=== PATIENT | male | born 1995 | race Caucasian/White ===

== ENCOUNTER 2022-12-07 08:04 | Inpatient (IN) | payer BC ==
[2022-12-07] MEDS ORDERED: Sodium Chloride 0.9% 10 ML Syringe FLUSH PRN (08:31)
[2022-12-07] MEDS ORDERED: Thiamine 200 MG/2 ML MDV IVPUSH ONE (08:32)
[2022-12-07] MEDS ORDERED: MVI IV ONE ×4 (08:32→09:30)
[2022-12-07] MEDS ORDERED: VITAMIN K IV ONE ×4 (08:32→09:30)
[2022-12-07] MEDS ORDERED: NACL IV ONE ×4 (08:32→09:30)
[2022-12-07] MEDS ORDERED: DEXTROSE IV ONE ×4 (08:32→09:30)
[2022-12-07 08:42] LABS: BASOPHILS ABSOLUTE AUTO 0.1 K/mm3 (0.0-0.2); EOSINOPHILS PERCENT AUTO 0.2 % (0.0-6.0); HEMATOCRIT 37.8 % (42.0-52.0); HEMOGLOBIN 13.3 gm/dl (14.0-18.0); IMMATURE GRAN ABSOLUTE AUTO 0.05 K/mm3 (0.00-0.05); LYMPHOCYTES ABSOLUTE AUTO 0.7 K/mm3 (1.0-4.8); LYMPHOCYTES PERCENT AUTO 13.2 % (24.0-44.0); MEAN CORPUSCULAR HEMOGLOBIN 32.4 pg (28.0-32.0); MEAN CORPUSCULAR HGB CONC 35.2 g/dl (32.0-36.0); MEAN CORPUSCULAR VOLUME 92.2 fl (83.0-99.0); MEAN PLATELET VOLUME 10.8 fl (9.4-12.4); MONOCYTES ABSOLUTE AUTO 1.3 K/mm3 (0.0-0.8); MONOCYTES PERCENT AUTO 24.8 % (0.0-8.0); NEUTROPHILS ABSOLUTE AUTO 3.1 K/mm3 (1.8-7.7); NEUTROPHILS PERCENT AUTO 59.8 % (41.0-71.0); PLATELET COUNT,PLT 275 K/mm3 (150-400); WHITE BLOOD CELL COUNT,WBC 5.16 K/mm3 (3.9-11.3)
[2022-12-07] MEDS ORDERED: Sodium Chloride 0.9% 1,000 ML IV SCH (08:45)
[2022-12-07 08:53] LABS: A/G RATIO 0.7 (1-2); ALBUMIN 3.3 g/dl (3.4-5.0); ANION GAP 11.9 (5-15); BILIRUBIN TOTAL 1.2 mg/dL (0.2-1.0); BUN/CREATININE RATIO 8.6 (14-18); CALCIUM 9.1 mg/dL (8.5-10.1); CREATININE 0.7 mg/dL (0.7-1.3); EST CRCL DRUG DOSING (CG) 213.8 mL/min; MAGNESIUM 1.9 mg/dL (1.8-2.4); POTASSIUM,K 2.9 mEq/L (3.5-5.1); PROTEIN TOTAL,TP 7.8 g/dl (6.4-8.2)
[2022-12-07] MEDS: Folic Acid 50 MG/10 ML MDV IV SCH (09:00)
[2022-12-07 09:20] LABS: SLIDE REVIEW ABNORMAL SMEAR
[2022-12-07] MEDS: Potassium Chloride 10 MEQ in Premix Bag 1 BAG IV SCH ×4 (09:32→14:12)
[2022-12-07] MEDS ORDERED: LORazepam 2 MG/ML SDV IVPUSH ONE ×2 (10:55→12:28)
[2022-12-07 11:52] LABS: BARBITURATE SCREEN,URINE NEGATIVE (CUTOFF=200); BENZODIAZEPINES SCREEN,URINE PRESUMPTIVE POSITIVE (CUTOFF=150); BUPRENORPHINE SCREEN,URINE NEGATIVE (CUTOFF=10); METHADONE SCREEN, URINE NEGATIVE (CUT0FF=200); METHAMPHETAMINES SCREEN, URINE NEGATIVE (CUTOFF=500); OXYCODONE SCREEN,URINE NEGATIVE (CUT0FF=100); PROPOXYPHENE SCREEN,URINE NEGATIVE (CUTOFF=300); THC SCREEN,URINE 20 NG/ML NEGATIVE (CUTOFF=50)
[2022-12-07 11:54] LABS: AMPHETAMINES SCREEN, URINE NEGATIVE (CUTOFF=500)
[2022-12-07] MEDS ORDERED: Thiamine 200 MG in Sodium Chloride 0.9% 100 ML IV ONE (12:28)
[2022-12-07] MEDS ORDERED: Thiamine 200 MG/2 ML MDV IV ONE (13:00)
[2022-12-07] MEDS ORDERED: Docusate Sodium 100 MG Cap PO PRN (13:29)
[2022-12-07] MEDS ORDERED: Ondansetron 4 MG/2 ML SDV IV PRN (13:29)
[2022-12-07] MEDS ORDERED: Acetaminophen 325 MG Tab PO PRN (13:29)
[2022-12-07] MEDS ORDERED: oxyCODONE 5 MG Tab PO PRN (13:29)
[2022-12-07] MEDS: Pantoprazole 40 MG Vial IVPUSH SCH (14:18)
[2022-12-07] MEDS: LORazepam 2 MG/ML SDV IVPUSH PRN ×6 (14:18→23:42)
[2022-12-07] MEDS: D5 1/2 NS w/ 20 mEq/L KCl 1,000 ML IV SCH (16:38)
[2022-12-08] MEDS: LORazepam 2 MG/ML SDV IVPUSH PRN ×9 (01:30→23:32)
[2022-12-08] MEDS: D5 1/2 NS w/ 20 mEq/L KCl 1,000 ML IV SCH ×3 (03:19→20:11)
[2022-12-08 05:26] LABS: BASOPHILS ABSOLUTE AUTO 0.1 K/mm3 (0.0-0.2); BASOPHILS PERCENT AUTO 0.9 % (0.0-1.0); EOSINOPHILS PERCENT AUTO 0.3 % (0.0-6.0); HEMATOCRIT 34.2 % (42.0-52.0); HEMOGLOBIN 12.2 gm/dl (14.0-18.0); IMMATURE GRAN ABSOLUTE AUTO 0.06 K/mm3 (0.00-0.05); IMMATURE GRAN PERCENT AUTO 0.9 % (0.0-0.4); LYMPHOCYTES ABSOLUTE AUTO 0.8 K/mm3 (1.0-4.8); MEAN CORPUSCULAR HEMOGLOBIN 32.6 pg (28.0-32.0); MEAN CORPUSCULAR HGB CONC 35.7 g/dl (32.0-36.0); MEAN CORPUSCULAR VOLUME 91.4 fl (83.0-99.0); MONOCYTES ABSOLUTE AUTO 1.2 K/mm3 (0.0-0.8); MONOCYTES PERCENT AUTO 18.8 % (0.0-8.0); NEUTROPHILS ABSOLUTE AUTO 4.4 K/mm3 (1.8-7.7); NEUTROPHILS PERCENT AUTO 67.1 % (41.0-71.0); PLATELET COUNT,PLT 293 K/mm3 (150-400); RED BLOOD CELL COUNT 3.74 M/mm3 (4.52-5.90); WHITE BLOOD CELL COUNT,WBC 6.61 K/mm3 (3.9-11.3)
[2022-12-08 05:40] LABS: A/G RATIO 0.7 (1-2); ALBUMIN 2.9 g/dl (3.4-5.0); ANION GAP 11.3 (5-15); BUN/CREATININE RATIO 6.7 (14-18); CALCIUM 8.3 mg/dL (8.5-10.1); CREATININE 0.6 mg/dL (0.7-1.3); EST CRCL DRUG DOSING (CG) 249.43 mL/min; MAGNESIUM 1.8 mg/dL (1.8-2.4); PHOSPHORUS 2.8 mg/dL (2.6-4.7); POTASSIUM,K 3.3 mEq/L (3.5-5.1); PROTEIN TOTAL,TP 6.8 g/dl (6.4-8.2)
[2022-12-08 06:31] LABS: SLIDE REVIEW NORMAL SMEAR
[2022-12-08] MEDS ORDERED: Sodium Chloride 0.9% 1,000 ML IV ONE (07:59)
[2022-12-08] MEDS: Thiamine 200 MG/2 ML MDV IVPUSH SCH (08:11)
[2022-12-08] MEDS: Folic Acid 50 MG/10 ML MDV IV SCH (08:11)
[2022-12-08] MEDS: Pantoprazole 40 MG Vial IVPUSH SCH (08:11)
[2022-12-08] MEDS: Potassium Chloride 10 MEQ in Premix Bag 1 BAG IV SCH ×4 (08:12→11:10)
[2022-12-08] MEDS ORDERED: Thiamine 200 MG in Sodium Chloride 0.9% 100 ML IV SCH (09:00)
[2022-12-08] MEDS: HYDROmorphone 0.5 MG/0.5 ML Syringe IVPUSH PRN ×3 (11:51→23:33)
[2022-12-08] MEDS ORDERED: hydrALAZINE 20 MG/ML SDV IVPUSH ONE (22:20)
[2022-12-09] MEDS: HYDROmorphone 1 MG/ML Syringe IVPUSH PRN ×3 (00:45→22:35)
[2022-12-09] MEDS ORDERED: Furosemide 40 MG/4 ML VIAL IVPUSH ONE (01:47)
[2022-12-09] MEDS ORDERED: Furosemide 40 MG/4 ML VIAL ONE (01:57)
[2022-12-09 02:05] LABS: BASE EXCESS ARTERIAL 1.3 (-2-2.0); BICARBONATE,ARTERIAL 28.8 meq/L (22.0-26.0); O2 SATURATION ARTERIAL 89.3 % (96.0-97.0); PCO2 ARTERIAL 62.3 mmHg (35.0-45.0)
[2022-12-09] MEDS ORDERED: methylPREDNISolone Sodium Succinate 125 MG/2 ML SDV IVPUSH ONE (02:14)
[2022-12-09] MEDS ORDERED: Metoprolol Tartrate 5 MG/5 ML SDV IVPUSH PRN (02:16)
[2022-12-09] MEDS ORDERED: Piperacillin/Tazobactam 4.5 GM in Sodium Chloride 0.9% 100 ML IV ONE ×2 (02:30→03:00)
[2022-12-09] MEDS ORDERED: Sodium Chloride 0.9% 100 ML ONE (02:43)
[2022-12-09] MEDS: Albuterol 0.083% 2.5 MG/3 ML Neb Soln NEB PRN ×2 (02:48→11:57)
[2022-12-09 02:56] LABS: BASOPHILS ABSOLUTE AUTO 0.1 K/mm3 (0.0-0.2); BASOPHILS PERCENT AUTO 0.4 % (0.0-1.0); EOSINOPHILS PERCENT AUTO 0.3 % (0.0-6.0); HEMOGLOBIN 13.2 gm/dl (14.0-18.0); IMMATURE GRAN ABSOLUTE AUTO 0.06 K/mm3 (0.00-0.05); IMMATURE GRAN PERCENT AUTO 0.5 % (0.0-0.4); LYMPHOCYTES ABSOLUTE AUTO 1.1 K/mm3 (1.0-4.8); MEAN CORPUSCULAR HEMOGLOBIN 32.4 pg (28.0-32.0); MEAN CORPUSCULAR HGB CONC 34.7 g/dl (32.0-36.0); MEAN CORPUSCULAR VOLUME 93.4 fl (83.0-99.0); MEAN PLATELET VOLUME 10.7 fl (9.4-12.4); MONOCYTES ABSOLUTE AUTO 1.6 K/mm3 (0.0-0.8); MONOCYTES PERCENT AUTO 14.1 % (0.0-8.0); NEUTROPHILS ABSOLUTE AUTO 8.4 K/mm3 (1.8-7.7); NEUTROPHILS PERCENT AUTO 74.7 % (41.0-71.0); PLATELET COUNT,PLT 396 K/mm3 (150-400); RED BLOOD CELL COUNT 4.07 M/mm3 (4.52-5.90); WHITE BLOOD CELL COUNT,WBC 11.31 K/mm3 (3.9-11.3)
[2022-12-09 03:23] LABS: A/G RATIO 0.7 (1-2); ALBUMIN 3.1 g/dl (3.4-5.0); ANION GAP 10.1 (5-15); BILIRUBIN TOTAL 1.1 mg/dL (0.2-1.0); CALCIUM 8.5 mg/dL (8.5-10.1); CREATININE 0.6 mg/dL (0.7-1.3); EST CRCL DRUG DOSING (CG) 249.43 mL/min; LACTIC ACID 0.6 mmol/L (0.4-2.0); MAGNESIUM 1.6 mg/dL (1.8-2.4); POTASSIUM,K 4.1 mEq/L (3.5-5.1); PROTEIN TOTAL,TP 7.4 g/dl (6.4-8.2)
[2022-12-09 03:43] LABS: ANION GAP 10.1 (5-15); POTASSIUM,K 4.1 mEq/L (3.5-5.1)
[2022-12-09 03:44] LABS: A/G RATIO 0.7 (1-2); ALBUMIN 3.1 g/dl (3.4-5.0); BILIRUBIN TOTAL 1.1 mg/dL (0.2-1.0); CALCIUM 8.5 mg/dL (8.5-10.1); CREATININE 0.6 mg/dL (0.7-1.3); EST CRCL DRUG DOSING (CG) 249.43 mL/min; MAGNESIUM 1.6 mg/dL (1.8-2.4); PROTEIN TOTAL,TP 7.4 g/dl (6.4-8.2)
[2022-12-09 03:45] LABS: WHITE BLOOD CELL COUNT,WBC 11.31 K/mm3 (3.9-11.3)
[2022-12-09 03:46] LABS: HEMOGLOBIN 13.2 gm/dl (14.0-18.0); MEAN CORPUSCULAR HEMOGLOBIN 32.4 pg (28.0-32.0); MEAN CORPUSCULAR HGB CONC 34.7 g/dl (32.0-36.0); MEAN CORPUSCULAR VOLUME 93.4 fl (83.0-99.0); MEAN PLATELET VOLUME 10.7 fl (9.4-12.4); NEUTROPHILS PERCENT AUTO 74.7 % (41.0-71.0); PLATELET COUNT,PLT 396 K/mm3 (150-400); RED BLOOD CELL COUNT 4.07 M/mm3 (4.52-5.90)
[2022-12-09 03:47] LABS: BASOPHILS ABSOLUTE AUTO 0.1 K/mm3 (0.0-0.2); BASOPHILS PERCENT AUTO 0.4 % (0.0-1.0); EOSINOPHILS PERCENT AUTO 0.3 % (0.0-6.0); IMMATURE GRAN PERCENT AUTO 0.5 % (0.0-0.4); LYMPHOCYTES ABSOLUTE AUTO 1.1 K/mm3 (1.0-4.8); MONOCYTES ABSOLUTE AUTO 1.6 K/mm3 (0.0-0.8); MONOCYTES PERCENT AUTO 14.1 % (0.0-8.0); NEUTROPHILS ABSOLUTE AUTO 8.4 K/mm3 (1.8-7.7)
[2022-12-09 03:48] LABS: IMMATURE GRAN ABSOLUTE AUTO 0.06 K/mm3 (0.00-0.05)
[2022-12-09 04:22] LABS: SLIDE REVIEW ABNORMAL SMEAR
[2022-12-09 04:23] LABS: SLIDE REVIEW ABNORMAL SMEAR
[2022-12-09 05:20] LABS: BICARBONATE,ARTERIAL 26.1 meq/L (22.0-26.0); PCO2 ARTERIAL 40.9 mmHg (35.0-45.0)
[2022-12-09] MEDS ORDERED: Dextrose 5%-0.9% NaCl with KCl 1,000 ML IV SCH (07:45)
[2022-12-09] MEDS: LORazepam 2 MG/ML SDV IVPUSH PRN ×2 (08:04→22:13)
[2022-12-09] MEDS ORDERED: Iopamidol 755 MG/ML 50 ML Bottle IVPUSH ONE (08:12)
[2022-12-09] MEDS ORDERED: Sodium Chloride 0.9% 10 ML Syringe FLUSH ONE (08:12)
[2022-12-09] MEDS ORDERED: Iopamidol 755 Mg/ML 100 ML Bottle IVPUSH ONE (08:12)
[2022-12-09] MEDS ORDERED: PHENobarbital Sodium 65 MG/ML SDV IVPUSH ONE (08:25)
[2022-12-09] MEDS: Thiamine 200 MG/2 ML MDV IVPUSH SCH (08:38)
[2022-12-09] MEDS: Pantoprazole 40 MG Vial IVPUSH SCH (08:38)
[2022-12-09] MEDS: Folic Acid 50 MG/10 ML MDV IV SCH (08:40)
[2022-12-09] MEDS: Piperacillin/Tazobactam 4.5 GM in Sodium Chloride 0.9% 100 ML IV SCH ×2 (08:44→16:47)
[2022-12-09] MEDS ORDERED: Piperacillin/Tazobactam 4.5 GM in Sodium Chloride 0.9% 100 ML IV SCH (09:15)
[2022-12-09] MEDS ORDERED: Magnesium Sulfate/Water 2 GM in Premix Bag 1 BAG IV ONE (11:00)
[2022-12-09 11:36] LABS: LACTIC ACID 2.2 mmol/L (0.4-2.0)
[2022-12-09] MEDS ORDERED: Sodium Chloride 0.9% 1,000 ML IV ONE (11:47)
[2022-12-09] MEDS: VANCOmycin 1.5 GM/300 ML 1.5 GM in Premix Bag 1 BAG IV SCH (14:19)
[2022-12-09] MEDS: Dextrose 5%-0.9% NaCl with KCl 1,000 ML IV SCH (14:30)
[2022-12-09] MEDS: Albuterol/Ipratropium 3.0-0.5 MG/3 ML Neb Soln NEB SCH ×2 (16:08→20:16)
[2022-12-09] MEDS: PHENobarbital Sodium 65 MG/ML SDV IVPUSH SCH (20:40)
[2022-12-10] MEDS: Piperacillin/Tazobactam 4.5 GM in Sodium Chloride 0.9% 100 ML IV SCH ×4 (00:18→23:53)
[2022-12-10] MEDS: VANCOmycin 1.5 GM/300 ML 1.5 GM in Premix Bag 1 BAG IV SCH ×2 (00:21→13:20)
[2022-12-10] MEDS: Dextrose 5%-0.9% NaCl with KCl 1,000 ML IV SCH ×4 (00:30→20:40)
[2022-12-10] MEDS: LORazepam 2 MG/ML SDV IVPUSH PRN ×2 (03:17→17:30)
[2022-12-10] MEDS: HYDROmorphone 1 MG/ML Syringe IVPUSH PRN ×4 (04:56→21:01)
[2022-12-10 05:28] LABS: BASOPHILS ABSOLUTE AUTO 0.1 K/mm3 (0.0-0.2); BASOPHILS PERCENT AUTO 0.5 % (0.0-1.0); EOSINOPHILS PERCENT AUTO 0.1 % (0.0-6.0); HEMATOCRIT 32.5 % (42.0-52.0); HEMOGLOBIN 11.3 gm/dl (14.0-18.0); IMMATURE GRAN ABSOLUTE AUTO 0.43 K/mm3 (0.00-0.05); IMMATURE GRAN PERCENT AUTO 3.2 % (0.0-0.4); LYMPHOCYTES ABSOLUTE AUTO 0.6 K/mm3 (1.0-4.8); LYMPHOCYTES PERCENT AUTO 4.5 % (24.0-44.0); MEAN CORPUSCULAR HEMOGLOBIN 31.9 pg (28.0-32.0); MEAN CORPUSCULAR HGB CONC 34.8 g/dl (32.0-36.0); MEAN CORPUSCULAR VOLUME 91.8 fl (83.0-99.0); MEAN PLATELET VOLUME 10.9 fl (9.4-12.4); MONOCYTES ABSOLUTE AUTO 1.4 K/mm3 (0.0-0.8); MONOCYTES PERCENT AUTO 10.8 % (0.0-8.0); NEUTROPHILS ABSOLUTE AUTO 10.8 K/mm3 (1.8-7.7); NEUTROPHILS PERCENT AUTO 80.9 % (41.0-71.0); PLATELET COUNT,PLT 311 K/mm3 (150-400); RED BLOOD CELL COUNT 3.54 M/mm3 (4.52-5.90); WHITE BLOOD CELL COUNT,WBC 13.31 K/mm3 (3.9-11.3)
[2022-12-10] MEDS: Albuterol/Ipratropium 3.0-0.5 MG/3 ML Neb Soln NEB SCH ×4 (05:56→21:10)
[2022-12-10 06:01] LABS: A/G RATIO 0.6 (1-2); ALBUMIN 2.3 g/dl (3.4-5.0); ANION GAP 12.9 (5-15); BILIRUBIN TOTAL 0.9 mg/dL (0.2-1.0); BUN/CREATININE RATIO 11.7 (14-18); CREATININE 0.6 mg/dL (0.7-1.3); EST CRCL DRUG DOSING (CG) 249.43 mL/min; MAGNESIUM 1.9 mg/dL (1.8-2.4); POTASSIUM,K 3.9 mEq/L (3.5-5.1); PROTEIN TOTAL,TP 6.4 g/dl (6.4-8.2); VANCOMYCIN RANDOM 13.8 ug/mL
[2022-12-10] MEDS: Pantoprazole 40 MG Vial IVPUSH SCH (08:23)
[2022-12-10] MEDS: PHENobarbital Sodium 65 MG/ML SDV IVPUSH SCH ×2 (08:24→20:44)
[2022-12-10] MEDS: Thiamine 200 MG/2 ML MDV IVPUSH SCH (08:24)
[2022-12-10 10:37] LABS: PCO2 ARTERIAL 38.6 mmHg (35.0-45.0)
[2022-12-10 10:38] LABS: BASE EXCESS ARTERIAL 0.1 (-2-2.0); O2 SATURATION ARTERIAL 97.8 % (96.0-97.0)
[2022-12-10] MEDS: Enoxaparin 40 MG/0.4 ML Syringe SUBCUT SCH (13:14)
[2022-12-11] MEDS: LORazepam 2 MG/ML SDV IVPUSH PRN ×6 (00:01→21:50)
[2022-12-11] MEDS: VANCOmycin 1.5 GM/300 ML 1.5 GM in Premix Bag 1 BAG IV SCH ×2 (01:48→14:46)
[2022-12-11] MEDS: HYDROmorphone 1 MG/ML Syringe IVPUSH PRN ×3 (02:01→21:49)
[2022-12-11] MEDS: Albuterol/Ipratropium 3.0-0.5 MG/3 ML Neb Soln NEB SCH ×4 (05:27→21:40)
[2022-12-11 05:42] LABS: BASOPHILS ABSOLUTE AUTO 0.1 K/mm3 (0.0-0.2); BASOPHILS PERCENT AUTO 0.5 % (0.0-1.0); EOSINOPHILS ABSOLUTE AUTO 0.1 K/mm3 (0.0-0.4); EOSINOPHILS PERCENT AUTO 1.1 % (0.0-6.0); IMMATURE GRAN ABSOLUTE AUTO 0.19 K/mm3 (0.00-0.05); IMMATURE GRAN PERCENT AUTO 1.5 % (0.0-0.4); LYMPHOCYTES ABSOLUTE AUTO 0.8 K/mm3 (1.0-4.8); LYMPHOCYTES PERCENT AUTO 6.1 % (24.0-44.0); MEAN CORPUSCULAR HEMOGLOBIN 31.6 pg (28.0-32.0); MEAN CORPUSCULAR HGB CONC 33.3 g/dl (32.0-36.0); MEAN PLATELET VOLUME 11.2 fl (9.4-12.4); MONOCYTES ABSOLUTE AUTO 1.6 K/mm3 (0.0-0.8); MONOCYTES PERCENT AUTO 11.9 % (0.0-8.0); NEUTROPHILS ABSOLUTE AUTO 10.3 K/mm3 (1.8-7.7); NEUTROPHILS PERCENT AUTO 78.9 % (41.0-71.0); RED BLOOD CELL COUNT 3.48 M/mm3 (4.52-5.90); WHITE BLOOD CELL COUNT,WBC 13.05 K/mm3 (3.9-11.3)
[2022-12-11 05:44] LABS: A/G RATIO 0.5 (1-2); ALBUMIN 2.1 g/dl (3.4-5.0); ANION GAP 12.5 (5-15); BILIRUBIN TOTAL 1.2 mg/dL (0.2-1.0); BUN/CREATININE RATIO 6.7 (14-18); CALCIUM 8.3 mg/dL (8.5-10.1); CREATININE 0.6 mg/dL (0.7-1.3); EST CRCL DRUG DOSING (CG) 249.43 mL/min; MAGNESIUM 1.8 mg/dL (1.8-2.4); POTASSIUM,K 4.5 mEq/L (3.5-5.1); PROTEIN TOTAL,TP 6.3 g/dl (6.4-8.2)
[2022-12-11 05:51] LABS: MEAN CORPUSCULAR VOLUME 94.8 fl (83.0-99.0); PLATELET COUNT,PLT 391 K/mm3 (150-400)
[2022-12-11 06:22] LABS: SLIDE REVIEW ABNORMAL SMEAR
[2022-12-11] MEDS: Dextrose 5%-0.9% NaCl with KCl 1,000 ML IV SCH ×2 (06:42→18:00)
[2022-12-11] MEDS: Piperacillin/Tazobactam 4.5 GM in Sodium Chloride 0.9% 100 ML IV SCH ×2 (08:35→16:18)
[2022-12-11] MEDS: Thiamine 200 MG/2 ML MDV IVPUSH SCH (09:38)
[2022-12-11] MEDS: Enoxaparin 40 MG/0.4 ML Syringe SUBCUT SCH (09:38)
[2022-12-11] MEDS: PHENobarbital Sodium 65 MG/ML SDV IVPUSH SCH ×2 (09:38→20:22)
[2022-12-11] MEDS: Pantoprazole 40 MG Vial IVPUSH SCH (09:38)
[2022-12-11] MEDS: Acetaminophen 650 MG Supp RECTAL PRN ×2 (10:00→20:23)
[2022-12-11] MEDS: Azithromycin 500 MG in Sodium Chloride 0.9% 250 ML IV SCH (11:48)
[2022-12-11] MEDS: Albuterol 0.083% 2.5 MG/3 ML Neb Soln NEB PRN (19:15)
[2022-12-11] MEDS ORDERED: Sodium Chloride 0.9% 1,000 ML IV SCH (20:45)
[2022-12-12] MEDS: Piperacillin/Tazobactam 4.5 GM in Sodium Chloride 0.9% 100 ML IV SCH ×2 (00:47→09:02)
[2022-12-12] MEDS: VANCOmycin 1.5 GM/300 ML 1.5 GM in Premix Bag 1 BAG IV SCH ×2 (00:48→15:04)
[2022-12-12] MEDS: LORazepam 2 MG/ML SDV IVPUSH PRN ×3 (04:15→11:38)
[2022-12-12] MEDS: Dextrose 5%-0.9% NaCl with KCl 1,000 ML IV SCH (04:28)
[2022-12-12 05:50] LABS: BASOPHILS ABSOLUTE AUTO 0.1 K/mm3 (0.0-0.2); BASOPHILS PERCENT AUTO 0.6 % (0.0-1.0); EOSINOPHILS ABSOLUTE AUTO 0.2 K/mm3 (0.0-0.4); EOSINOPHILS PERCENT AUTO 1.1 % (0.0-6.0); HEMATOCRIT 34.1 % (42.0-52.0); HEMOGLOBIN 11.7 gm/dl (14.0-18.0); IMMATURE GRAN ABSOLUTE AUTO 0.23 K/mm3 (0.00-0.05); IMMATURE GRAN PERCENT AUTO 1.6 % (0.0-0.4); LYMPHOCYTES ABSOLUTE AUTO 0.8 K/mm3 (1.0-4.8); LYMPHOCYTES PERCENT AUTO 5.5 % (24.0-44.0); MEAN CORPUSCULAR HGB CONC 34.3 g/dl (32.0-36.0); MEAN CORPUSCULAR VOLUME 93.2 fl (83.0-99.0); MEAN PLATELET VOLUME 10.1 fl (9.4-12.4); MONOCYTES ABSOLUTE AUTO 1.5 K/mm3 (0.0-0.8); MONOCYTES PERCENT AUTO 10.2 % (0.0-8.0); NEUTROPHILS ABSOLUTE AUTO 11.5 K/mm3 (1.8-7.7); PLATELET COUNT,PLT 446 K/mm3 (150-400); RED BLOOD CELL COUNT 3.66 M/mm3 (4.52-5.90); WHITE BLOOD CELL COUNT,WBC 14.23 K/mm3 (3.9-11.3)
[2022-12-12] MEDS: Albuterol/Ipratropium 3.0-0.5 MG/3 ML Neb Soln NEB SCH ×2 (06:18→09:37)
[2022-12-12 06:32] LABS: A/G RATIO 0.5 (1-2); ALBUMIN 2.1 g/dl (3.4-5.0); ANION GAP 13.3 (5-15); BILIRUBIN TOTAL 1.3 mg/dL (0.2-1.0); CALCIUM 8.5 mg/dL (8.5-10.1); CREATININE 0.5 mg/dL (0.7-1.3); EST CRCL DRUG DOSING (CG) 299.32 mL/min; MAGNESIUM 1.8 mg/dL (1.8-2.4); POTASSIUM,K 4.3 mEq/L (3.5-5.1); PROTEIN TOTAL,TP 6.8 g/dl (6.4-8.2)
[2022-12-12] MEDS: HYDROmorphone 1 MG/ML Syringe IVPUSH PRN (06:46)
[2022-12-12 07:07] LABS: C-REACTIVE PROTEIN 17.4 mg/dL (<1.0)
[2022-12-12] MEDS: Enoxaparin 40 MG/0.4 ML Syringe SUBCUT SCH (09:10)
[2022-12-12] MEDS: Pantoprazole 40 MG Vial IVPUSH SCH (09:11)
[2022-12-12] MEDS: Thiamine 200 MG/2 ML MDV IVPUSH SCH (09:12)
[2022-12-12] MEDS: PHENobarbital Sodium 65 MG/ML SDV IVPUSH SCH (09:13)
[2022-12-12] MEDS: Azithromycin 500 MG in Sodium Chloride 0.9% 250 ML IV SCH (11:29)
[2022-12-12] MEDS: Acetaminophen 650 MG Supp RECTAL PRN (11:47)
[2022-12-12] MEDS ORDERED: Sodium Chloride 0.9% 1,000 ML ONE (14:29)
== END 2022-12-12 14:40 | DRG 775 ==
LOC: JD.ED 08:04 → JD.ICU 12:29
PROVIDERS: ADMIT Hospitalist; ATTEND Hospitalist
PROC: 3E03329 Introduction of Other Anti-infective into Peripheral Vein, Percutaneous Approach (ICD-10-PCS; principal; 2022-12-09)
PROC: 4A133R1 Monitoring of Arterial Saturation, Peripheral, Percutaneous Approach (ICD-10-PCS; 2022-12-09)
PROC: 5A09357 Assistance with Respiratory Ventilation, Less than 24 Consecutive Hours, Continuous Positive Airway Pressure (ICD-10-PCS; 2022-12-09)
PROC: 0T9B70Z Drainage of Bladder with Drainage Device, Via Natural or Artificial Opening (ICD-10-PCS; 2022-12-11)
DX: F10.131 Alcohol abuse with withdrawal delirium (principal); G93.41 Metabolic encephalopathy; J96.01 Acute respiratory failure with hypoxia; J96.02 Acute respiratory failure with hypercapnia; J69.0 Pneumonitis due to inhalation of food and vomit; A41.9 Sepsis, unspecified organism; R65.20 Severe sepsis without septic shock; J18.9 Pneumonia, unspecified organism; Z99.81 Dependence on supplemental oxygen; E86.0 Dehydration; R27.0 Ataxia, unspecified; E87.6 Hypokalemia; R74.8 Abnormal levels of other serum enzymes; R77.8 Other specified abnormalities of plasma proteins; Z79.899 Other long term (current) drug therapy
CPT/HCPCS: 36415; 36600; 51702; 70450; 70450-26; 71045; 71045-26; 71260; 71260-26; 74177; 74177-26; 80053; 80202; 80306; 80307; 82140; 82550; 82803; 82947; 83605; 83690; 83735; 84100; 84484; 85025; 86140; 87040; 93005; 93010; 93971-26-LT; 93971-LT; 94640; 94660; 96365; 96366; 96375; 99284; 99285-25; A9270-GY; C9113; J0456; J1170; J1650; J1940; J2060; J2543; J2560; J2930; J3370; J3411; J3475; J3480; J3490; J7030; J7042; J7050; J7620-GY; Q9967